=== PATIENT | female | born 1960 | race Caucasian/White ===

== ENCOUNTER 2017-01-20 18:50 | Emergency (ER) | payer MEDICARE, MEDICAID ==
[~2017-01-20] VITALS: Ht 170.2 cm; Wt 104.3 kg
--- NOTE | 2017-01-20 18:50 | NUR ---
PT. TO BED 2 SIDE RAILS UP, BED TO THE LOWEST POSITION
[2017-01-20 18:54] VITALS: BP 127/65; PULSE 85; RESP 16; TEMP 98; O2SAT 99
--- NOTE | 2017-01-20 18:55 | NUR ---
DR. LANGFORD AT BEDSIDE EXAMINING THE PT.
--- NOTE | 2017-01-20 19:00 | NUR ---
# 20 gauge angiocath placed to RAC. Use of asceptic technique. Opsite placed over site. Blood return noted. Blood for lab drawn from site. Flushed with 10 cc of normal saline. No evidence of infiltration noted. Patient tolerated well.
--- NOTE | 2017-01-20 19:03 | NUR ---
X RAY AT BESIDE
[2017-01-20 19:16] LABS: EOSINOPHILS # (AUTO) 0.1 K/uL (0.0-0.4); EOSINOPHILS % (AUTO) 0.7 % (0.0-4.0); MONOCYTES # (AUTO) 0.5 K/uL (0.0-1.0); NEUTROPHILS # (AUTO) 4.7 K/uL (1.8-7.7); RED CELL DISTRIBUTION WIDTH 13.2 % (9.0-15.0)
[2017-01-20 19:27] LABS: BASOPHILS # (AUTO) 0.1 K/uL (0.0-0.2); BASOPHILS % (AUTO) 1.2 % (0.0-2.0); HEMATOCRIT 37.7 % (36-48); HEMOGLOBIN 12.5 g/dL (12.0-16.0); LYMPHOCYTES # (AUTO) 2.1 K/uL (1.0-5.5); LYMPHOCYTES % (AUTO) 28.6 % (20.5-51.5); MEAN CORPUSCULAR HEMOGLOBIN 31 pg (27-31); MEAN CORPUSCULAR HGB CONC 33 % (32-36); MEAN CORPUSCULAR VOLUME 93 fL (79.0-98.0); MONOCYTES % (AUTO) 6.7 % (1.7-9.3); NEUTROPHILS % (AUTO) 62.8 % (40.0-70.0); PLATELET COUNT (AUTO) 250 K/uL (130-430); RED BLOOD CELL COUNT(AUTO) 4.05 MIL/uL (4.2-6.2); WHITE BLOOD COUNT (AUTO) 7.4 K/uL (4.8-10.8)
--- NOTE | 2017-01-20 19:35 | NUR ---
PT. TO ER BROUGHT IN BY EMS [facility] FOR NEAR SYNCOPE EPISODE AT THE GYM, PER PT. SHE DID NOT PASS OUT, BIB SQ 64, VITALS STABLE BP 146/81, PULSE 86, SpO2 96 % ON ROOM AIR, STATES SHE DOES NOT KNOW WHAT BROUGHT UPON THE NEAR SYNCOPE EPISODE, PT. APPEARS TO BE STABLE UNDER NO APPARENT STRESS, NO ANXIETY CALM, STATES THAT SHE HAS A HISTORY OF STROKE, NO CVA AYMPTOMS PRESENT, WIDE SMILE, NO FACIAL DROOP, FULLROM, CLEAR SPEECH, FOLLOWS COMMANDS
[2017-01-20 19:40] LABS: ALBUMIN 3.9 g/dL (3.4-4.8); TOTAL BILIRUBIN 0.3 mg/dL (0.0-1.0)
[2017-01-20 19:45] LABS: CALCIUM 8.9 mg/dL (8.4-11.0); POTASSIUM 4.8 mmol/L (3.5-5.1)
[2017-01-20 20:00] LABS: PROTHROMBIN TIME 10.4 SECS (9.5-12.5)
--- NOTE | 2017-01-20 20:00 | NUR ---
PT. RESTING, STATES SHE IS IN NO PAIN, STABLE VITALS, BED IN LOWEST POSITION SIDERAILS UP, IV INTACT NO INFILRATION NOTED FLUSHED WITH 10CC NS
--- NOTE | 2017-01-20 21:30 | NUR ---
BLOOD GLUCOSE 251 DR. NERI NOTIFIED, ORDERS RECEIVED, OKAYED DISCHARGE
[2017-01-20 21:45] VITALS: BP 136/77; PULSE 67; RESP 16; TEMP 98.1; O2SAT 99
--- NOTE | 2017-01-20 21:45 | NUR ---
Patient given written and verbal discharge instructions and verbalizes understanding. ER MD DR. NERI discussed with patient the results and treatment provided. Patient in stable condition. ID arm band removed. IV catheter removed intact and dressing applied, no active bleeding. NO Rx given. Patient educated on pain management and to follow up with PMD. Pain Scale 0/10 Opportunity for questions provided and answered.
== END 2017-01-20 21:45 | disposition home or self-care (01) ==
LOC: SED 18:50
DX: E11.649 Type 2 diabetes mellitus with hypoglycemia without coma (principal); I10 Essential (primary) hypertension; E78.00 Pure hypercholesterolemia, unspecified; Z88.0 Allergy status to penicillin; Z88.1 Allergy status to other antibiotic agents; Z91.02 Food additives allergy status; Z86.73 Personal history of transient ischemic attack (TIA), and cerebral infarction without residual deficits
CPT/HCPCS: 36415; 70450-TC; 71010; 80053; 80061; 82962; 83605; 84484; 85025; 85610-TC; 85730-TC; 87040-TC; 93005; 99285